=== PATIENT | female | born 1945 | race Caucasian/White ===

== ENCOUNTER 2020-11-07 06:13 | Day surgery (SDC) ==
[2020-11-07] MEDS ORDERED: DIAZEPAM 5 MG TABLET PO ONE (06:17)
[2020-11-07] MEDS ORDERED: ASPIRIN 325 MG TABLET PO ONE (06:17)
[2020-11-07] MEDS ORDERED: diphenhydrAMINE CAP 50 MG CAPSULE PO ONE (06:17)
[2020-11-07] MEDS ORDERED: MAGNESIUM SULF RIDER 2 GM/50 ML PREMIX IV PRN (06:17)
[2020-11-07] MEDS ORDERED: POTASSIUM CHLORIDE RIDER 10 MEQ/100 ML PREMIX IV PRN (06:17)
[2020-11-07] MEDS ORDERED: DIAZEPAM 5 MG TABLET ONE (08:05)
[2020-11-07] MEDS ORDERED: diphenhydrAMINE CAP 50 MG CAPSULE ONE (08:06)
[2020-11-07] MEDS: SODIUM CHLORIDE 0.9% 1,000 ML IV SCH (08:10)
[2020-11-07] MEDS ORDERED: HEPARIN/NACL 0.9% 2 UNITS/ML 2,000 UNIT/1,000 ML BAG IV ONE (09:54)
[2020-11-07] MEDS ORDERED: LIDOCAINE 1% 20 ML VIAL ONE (09:54)
[2020-11-07] MEDS ORDERED: VERAPAMIL 5 MG/2 ML VIAL ONE (09:56)
[2020-11-07] MEDS ORDERED: NITROGLYCERIN DRIP 50 MG/250 ML BOTTLE IV ONE (09:56)
[2020-11-07] MEDS ORDERED: MIDAZOLAM 2 MG/2 ML VIAL ONE (10:18)
[2020-11-07] MEDS ORDERED: HYDROmorphone 2 MG/1 ML VIAL ONE (10:18)
[2020-11-07] MEDS ORDERED: ENOXAPARIN 30 MG/0.3 ML SYRINGE ONE (10:28)
[2020-11-07] MEDS ORDERED: TIROFIBAN 5,000 MCG/100 ML PREMIX IV ONE (11:04)
[2020-11-07] MEDS ORDERED: CLOPIDOGREL 300 MG TABLET ONE (11:25)
[2020-11-07] MEDS ORDERED: NITROGLYCERIN SL 0.4 MG TABLET SL PRN (11:32)
[2020-11-07] MEDS ORDERED: ALIROCUMAB 75 MG/ML SUBCUT SCH (11:45)
[2020-11-07] MEDS ORDERED: PNEUMOCOCCAL VACCINE (13 VALENT) 0.5 ML SYRINGE IM ONE (13:44)
[2020-11-07] MEDS ORDERED: INFLUENZA VIRUS VACCINE 0.5 ML SYRINGE IM ONE (13:44)
[2020-11-07] MEDS ORDERED: traZODone 50 MG TABLET PO SCH (21:00)
[2020-11-07] MEDS ORDERED: CYCLOBENZAPRINE 10 MG TABLET PO SCH (21:00)
[2020-11-07] MEDS ORDERED: AMITRIPTYLINE 25 MG TABLET PO SCH (21:00)
[2020-11-08 04:36] LABS: Basophils # 0.1 10*3/uL (0.0-0.2); Basophils % 0.7 % (0.0-0.8); Eosinophils # 0.1 10*3/uL (0.0-0.87); Eosinophils % 1.6 % (0.00-10.9); Hematocrit 36.4 VOL% (35.7-47.0); Hemoglobin 11.6 GM/DL (12.0-16.0); Immature Granulocytes % 0.5 %; Immature Granulocytes Absolute 0.04 #; Lymphocytes # 1.6 10*3/uL (1.4-4.0); Lymphocytes % 20.7 % (21.3-54.2); Mean Corpuscular HGB Conc 31.9 GM/DL (32-36); Mean Corpuscular Volume 89.9 FL (87-102); Mean Platelet Volume 9.9 FL (9.6-12.0); Monocytes % 11.6 % (1.7-12.7); Neutrophils % 64.9 % (38.7-73.9); Platelet Count 165 T/CUMM (130-400); Red Blood Count 4.05 MC/CUMM (3.8-5.5); Red Cell Distribution Width 13.7 % (9.3-17.3); White Blood Count 7.7 T/CUMM (4-12)
[2020-11-08 05:03] LABS: Blood Urea Nitrogen 25 MG/DL (7-18); Calcium 8.5 MG/DL (8.5-10.1); Carbon Dioxide 30 MMOL/L (21-32); Estimated Glom Filtration Rate 27 ML/MIN; Glucose 134 MG/DL (74-106); Osmolality,Calculated 273.2 MOS/KG (273-304); Potassium 4.2 MMOL/L (3.5-5.1); Sodium 134 MMOL/L (136-145)
[2020-11-08 07:17] VITALS: BP 119/66
[2020-11-08] MEDS ORDERED: FUROSEMIDE 40 MG TABLET PO SCH (09:00)
[2020-11-08] MEDS ORDERED: carvediloL 25 MG TABLET PO SCH (09:00)
[2020-11-08] MEDS ORDERED: CLOPIDOGREL 75 MG TABLET PO SCH (09:00)
[2020-11-08] MEDS ORDERED: SPIRONOLACTONE 25 MG TABLET PO SCH (09:00)
[2020-11-08] MEDS ORDERED: LOSARTAN 25 MG TABLET PO SCH (09:00)
[2020-11-08] MEDS ORDERED: PANTOPRAZOLE 40 MG TABLET PO SCH (09:00)
[2020-11-08] MEDS ORDERED: ASPIRIN CHEW 81 MG TABLET PO SCH (09:00)
[2020-11-08] MEDS ORDERED: ISOSORBIDE MONONITRATE 20 MG TABLET PO SCH (09:00)
[2020-11-08] MEDS ORDERED: CHOLECALCIFEROL 5,000 UNIT TABLET PO SCH (09:00)
[2020-11-08] MEDS ORDERED: DOCUSATE SODIUM 100 MG/10 ML UDCUP PO SCH (09:00)
[2020-11-08] MEDS ORDERED: CITALOPRAM 20 MG TABLET PO SCH (09:00)
[2020-11-08] MEDS: SODIUM CHLORIDE 0.9% 1,000 ML IV SCH (10:03)
== END 2020-11-08 11:12 | disposition home or self-care (01) ==
LOC: N.CL 06:13 → N.TELES 11:20 → N.CL 11-08 11:12
PROVIDERS: ATTEND Internal Medicine Cardiovascular Disease